=== PATIENT | male | born 1985 | race Hispanic/Latino ===

== ENCOUNTER 2021-04-08 20:56 | Emergency (ER) | payer OTHER ==
[~2021-04-08] VITALS: Ht 170.2 cm; Wt 86.2 kg
[2021-04-08] MEDS ORDERED: TETRACAINE HCL 0.5% 4 ML OPHTH SOLN OP SCH (22:00)
[2021-04-08] MEDS ORDERED: FLUORESCEIN SODIUM 1 STRIP STRIP ONE (22:06)
[2021-04-08 22:40] VITALS: BP 135/86
[2021-04-08] MEDS ORDERED: ERYT1OIN7 OP (22:51)
[2021-04-08] MEDS ORDERED: ERYTHROMYCIN BASE 0.5% OPHTH OINT 1 GM TUBE OU SCH (23:00)
== END 2021-04-08 22:56 | disposition home or self-care (01) ==
LOC: EDH 20:56
DX: T15.02XA Foreign body in cornea, left eye, initial encounter (principal); X58.XXXA Exposure to other specified factors, initial encounter; Y93.89 Activity, other specified; Y92.89 Other specified places as the place of occurrence of the external cause; Y99.8 Other external cause status
CPT/HCPCS: 65222